=== PATIENT | male | born 1985 | race Caucasian/White ===

== ENCOUNTER 2022-01-09 09:15 | Emergency (ER) | payer OTHER, SELFPAY ==
[2022-01-09 09:21] VITALS: BP 149/102; PULSE 68; RESP 16; TEMP 36.6; O2SAT 99
--- NOTE | 2022-01-09 10:02 | ED.DENTAL ---
HPI - Dental/Oral General Chief complaint: Dental/Oral Stated complaint: tooth pain Related Data Home Medications Medication Instructions Recorded Confirmed No Home Medications 01/09/22 01/09/22 Allergies Allergy/AdvReac Type Severity Reaction Status Date / Time No Known Allergies Allergy Verified 01/09/22 09:29 Course Vital Signs Vital signs: Vital Signs Temperature 36.6 C 01/09/22 09:21 Pulse Rate 68 01/09/22 09:21 Respiratory Rate 16 01/09/22 09:21 Blood Pressure 149/102 H 01/09/22 09:21 Pulse Oximetry 99 01/09/22 09:21 Oxygen Delivery Room Air 01/09/22 09:21 Temperature 36.6 C 01/09/22 09:21 Pulse Rate 68 01/09/22 09:21 Respiratory Rate 16 01/09/22 09:21 Blood Pressure 149/102 H 01/09/22 09:21 Pulse Oximetry 99 01/09/22 09:21 Oxygen Delivery Room Air 01/09/22 09:21 Discharge Plan Discharge Prescriptions: No Action No Home Medications Follow-up/Referrals: PHYSICIAN,INFORMATION TECHNOLOGY INSTRUCTOR [Primary Care Provider] - Stand Alone Forms: Work/School Release IP
== END 2022-01-09 10:00 | disposition left against medical advice (07) ==
LOC: EXPBETH 09:19
PROVIDERS: Emergency Provider Registered Nurse
DX: Z53.21 Procedure and treatment not carried out due to patient leaving prior to being seen by health care provider (principal)
CPT/HCPCS: 99199

== ENCOUNTER → 2024-04-30 13:33 | Emergency (ER) | payer BC, SELFPAY ==
--- NOTE | ~2024-04-30 | CT_ITS ---
CT abdomen pelvis w con Ordering provider: Tracey Rosen History: 38 years Male with . rectal abscess . Comparison: None. Technique: CT abdomen and pelvis with IV and without oral contrast. Automated exposure control and it erative reconstruction technique were employed. The dose-length product was 974.84 mGy-cm. 100 mL Omn ipaque 350 was given IV. Findings: VISUALIZED LOWER CHEST: Normal. UPPER ABDOMINAL ORGANS: Liver: Normal. Gallbladder: Contracted. Spleen: Normal. Stomach/duodenum: Normal. Pancreas: Normal. Adrenals: Normal. Kidneys: Tiny cyst in the left kidney lower pole. PELVIC ORGANS: The bladder is normal. Prostatic calcification. BOWEL AND MESENTERY: Colon: No evidence of diverticulitis. Small hypodensity seen in the right rectal wall which may be sm all abscess. This area measures 1.8 x 0.3 centimeter. Soft tissue density seen in the left buttock me dially with no definite fluid collection. Normal appendix. Small Bowel: Normal. No obstruction. Peritoneum/mesentery: No free air or free fluid. No mesenteric lymphadenopathy. RETROPERITONEUM: Mild atheromatous disease of the abdominal aorta. No retroperitoneal lymphadenopat hy. MUSCULOSKELETAL: Superficial soft tissues: The superficial soft tissues are normal. Bones: Normal 1spine. IMPRESSION: 1. Possible hypodensity in the right wall of the rectum. Clinical correlation advised. 2. Soft tissue density in the medial aspect of the left buttock which may be inflammatory. Clinical correlation advised. Reviewed, dictated and finalized at location A. COM ENGINEER IMPRESSION: 1. Possible hypodensity in the right wall of the rectum. Clinical correlation advised. 2. Soft tissue density in the medial aspect of the left buttock which may be i nflammatory. Clinical correlation advised.
[2024-04-30 13:46] VITALS: BP 162/80; PULSE 82; RESP 18; TEMP 36.6; O2SAT 100
[2024-04-30 14:46] LABS: Basophils Absolute Auto 0.1 K/mm3 (0.0-0.1); Basophils Percent Auto 0.5 % (0.2-1.2); Eosinophils Absolute Auto 0.1 K/mm3 (0-0.3); Eosinophils Percent Auto 1.1 % (0-4.4); Hematocrit 46.2 % (42.0-52.0); Hemoglobin 16.3 g/dL (14.0-18.0); Immature Granulocyte Absolute 0.03 K/mm3 (0.00-0.031); Immature Granulocyte Percent A 0.3 % (0-0.5); Lymphocytes Absolute Auto 3.14 K/mm3 (0.9-3.2); Lymphocytes Percent Auto 32.5 % (18.3-44.2); Mean Corpuscular HGB Conc 35.3 g/dl (32-36); Mean Corpuscular Hemoglobin 32.4 pg (26-34); Mean Corpuscular Volume 91.8 fl (80-100); Mean Platelet Volume 10.2 fl (7.4-10.4); Monocytes Absolute Auto 0.6 K/mm3 (0.1-0.6); Neutrophils Absolute Auto 5.8 K/mm3 (1.3-6.7); Neutrophils Percent Auto 59.6 % (45.5-73.1); Platelet Count Result 303 k/mm3 (150-375); Red Blood Count 5.03 M/mm3 (4.6-6.20); Red Cell Distribution Width 12.4 % (11.5-14.5); White Blood Count 9.7 K/mm3 (4.5-10.0)
--- NOTE | 2024-04-30 14:50 | ED.SKABFB ---
HPI - Skin/Abscess/Foreign Bdy General Chief complaint: Skin/Abscess/Foreign Body <Tracey Rosen APRN - Last Filed: 04/30/24 14:55> Stated complaint: cyst on my butt <Tracey Rosen APRN - Last Filed: 04/30/24 14:55> Time Seen by Provider: 04/30/24 14:35 <Tracey Rosen APRN - Last Filed: 04/30/24 14:55> Focused HPI: Patient is a 38-year-old male who presents to the ER with an abscess on my butt. He reports he 1st noticed it approximately 1 month ago. Patient and his fiancee attempted to pop the cyst approximately 2 weeks ago but he reports on Tuesday it came back. He reports it has been draining without manipulation since Tuesday evening. Patient reports the site is painful. He endorses the cyst is between his rectum and scrotum and is approximately the size of a grape. Patient denies any recent fevers, urinary symptoms, abdominal pain. He denies any other medical history relevant to this ER visit. GENERAL: Well-appearing, well-nourished, and in no acute distress. HEAD: Normocephalic, atraumatic. CHEST: Clear to auscultation. ?No respiratory distress. HEART: Regular rate and rhythm.? NEURO: ?Alert and oriented x3. Patient screened in triage and initial orders placed.? ?Additional care and disposition to be based upon?diagnostic testing and treatment. <Tracey Rosen APRN - Last Filed: 04/30/24 14:55> History of Present Illness HPI narrative: Agree with the HPI as above <Alan Sotelo MD - Last Filed: 04/30/24 20:52> Related Data Allergies/Adverse reactions: Allergies Allergy/AdvReac Type Severity Reaction Status Date / Time No Known Allergies Allergy Verified 01/09/22 09:29 <Tracey Rosen APRN - Last Filed: 04/30/24 14:55> Review of Systems Review of Systems: Agree with the HPI above <Alan Sotelo MD - Last Filed: 04/30/24 20:52> Exam Narrative: GENERAL: [Well-appearing, well-nourished, and in no acute distress.] HEAD: [Normocephalic, atraumatic.] EYES: [PERRLA and EOMI.] ENT: Nares clear, no rhinorrhea or epistaxis. Mucous membranes moist. NECK: Supple. CHEST: [Clear to auscultation. No respiratory distress.] HEART: [Regular rate and rhythm]. No murmur heard. [Normal peripheral pulses.] ABDOMEN: [Soft, nondistended], [nontender], [No rigidity or guarding] GENITOURINARY: A knee medial intergluteal fold there is a small area of 0.5 cm x 0.3 cm previous carbuncle/abscess formation. Area is now popped, there is some slight induration with tenderness to palpation and weepage of initially serosanguineous but some clearing fluid. No persistent drainage, no bleeding. No fluctuance noted. No drainable abscess pocket on my examination. EXTREMITIES: Normal range of motion. [No edema.] SKIN: Warm, dry, no rash. NEURO: [No focal deficits]. Alert and oriented [x3.] PSYCH: [Normal mood and affect.] <Alan Sotelo MD - Last Filed: 04/30/24 20:52> Course Vital Signs Vital signs: Vital Signs Temperature 36.6 C 04/30/24 13:46 Pulse Rate 82 04/30/24 13:46 Respiratory Rate 18 04/30/24 13:46 Blood Pressure 162/80 H 04/30/24 13:46 Pulse Oximetry 100 04/30/24 13:46 Oxygen Delivery Room Air 04/30/24 13:46 Temperature 37.1 C 04/30/24 15:12 Pulse Rate 79 04/30/24 15:12 Respiratory Rate 18 04/30/24 15:12 Blood Pressure 118/79 04/30/24 15:12 Pulse Oximetry 97 04/30/24 15:12 Oxygen Delivery Room Air 04/30/24 13:46 <rTacey Rosen APRN - Last Filed: 04/30/24 14:55> Vital Signs Temperature 36.6 C 04/30/24 13:46 Pulse Rate 82 04/30/24 13:46 Respiratory Rate 18 04/30/24 13:46 Blood Pressure 162/80 H 04/30/24 13:46 Pulse Oximetry 100 04/30/24 13:46 Oxygen Delivery Room Air 04/30/24 13:46 Temperature 37.1 C 04/30/24 15:12 Pulse Rate 79 04/30/24 15:12 Respiratory Rate 18 04/30/24 15:12 Blood Pressure 118/79 04/30/24 15:12 Pulse Oximetry 97 04/30/24 15:12 Oxygen Delivery Room Air 04/30/24 13:46 <Alan Sotelo MD - Last Filed: 04/30/24 20:52> MDM - Skin/Abscess/Foreign Bdy MDM Narrative Medical decision making narrative: 38-year-old male presenting to the emergency department for evaluation of a perirectal abscess. He states for last month he has been having painful cyst in this area once in his intergluteal fold and 1 year as rectum. Notes that the 1 year his intergluteal fold did pop several days ago and has been draining some fluid mixed with white colored material. No fevers, no abdominal pain, nausea vomiting. He states he has not been seen by anybody for this previously. Was put on antibiotics that his primary care provider called for him for concerns of an abscess. Clinically he appears to have a carbuncle or an area of an abscess in his intergluteal fold that already has popped and is no longer actively draining. Does not clinically look significantly infected, no identifiable drainable abscess pocket, no fluctuance or irritation. Is mildly tender to palpation. Workup was ordered including a CT scan with IV contrast to assess for any other abscess formations or perirectal abscesses. Workup including CBC and CMP obtained. Patient was provided Toradol for analgesia. Workup shows no leukocytosis or anemia. Normal electrolytes. Normal renal and hepatic function panel. Negative lactic acid. Urinalysis without any signs of infection. CT scan was independently reviewed and also interpreted by radiology. There is a hypodensity in the right wall of the rectum that is very small and measures 1.8 x 0.3 cm which could be a perirectal abscess although not highly suspicious for this. The soft tissue densities seen his medial left butt cheek with inflammatory evidence but no abscess drainage or any fluid pocket. I relayed the CT findings to the patient and our plan of care going forward will be to treat him with antibiotics both topical and oral and have him follow-up with General surgery on outpatient basis for further evaluation and recommendations. Patient and family felt comfortable this plan of care and was stable for discharge home at this time. <Alan Sotelo MD - Last Filed: 04/30/24 20:52> Medical Records Attestation: I reviewed the patient's medical records. <Alan Sotelo MD - Last Filed: 04/30/24 20:52> Lab Data Attestation: I reviewed the patient's lab results. <Alan Sotelo MD - Last Filed: 04/30/24 20:52> Result diagrams: 04/30/24 14:36 04/30/24 14:36 <Tracey Rosen APRN - Last Filed: 04/30/24 14:55> Labs: Lab Results 04/30/24 04/30/24 Range/Units 14:36 15:38 WBC 9.7 (4.5-10.0) K/mm3 RBC 5.03 (4.6-6.20) M/mm3 Hgb 16.3 (14.0-18.0) g/dL Hct 46.2 (42.0-52.0) % MCV 91.8 (80-100) fl MCH 32.4 (26-34) pg MCHC 35.3 (32-36) g/dl RDW 12.4 (11.5-14.5) % Plt Count 303 (150-375) k/mm3 MPV 10.2 (7.4-10.4) fl Immature Gran % (Auto) 0.3 (0-0.5) % Neut % (Auto) 59.6 (45.5-73.1) % Lymph % (Auto) 32.5 (18.3-44.2) % [place] % (Auto) 6.0 (2.6-8.5) % Eos % (Auto) 1.1 (0-4.4) % Baso % (Auto) 0.5 (0.2-1.2) % Lymph # (Auto) 3.14 (0.9-3.2) K/mm3 [place] # (Auto) 0.6 (0.1-0.6) K/mm3 Eos # (Auto) 0.1 (0-0.3) K/mm3 Baso # (Auto) 0.1 (0.0-0.1) K/mm3 Abs Immat Gran (auto) 0.03 (0.00-0.031) K/mm3 Absolute Neuts (auto) 5.8 (1.3-6.7) K/mm3 Absolute Nucleated RBC 0.000 (0.0-0.012) K/mm3 Nucleated RBC % 0.0 (0.0-0.2) % Sodium 139 (137-145) mmol/L Potassium 3.9 (3.4-5.0) mmol/L Chloride 108 H (98-107) mmol/L Carbon Dioxide 25 (22-30) mmol/L Anion Gap 6 (4-12) mmol/L BUN 17 (9-20) mg/dL Creatinine 1.00 (0.7-1.3) mg/dL Estim Creat Clear Calc 107 ml/min Estimated GFR > 60 (59 - ) Glucose 95 (65-110) mg/dL Lactic Acid 1.9 (0.7-2.0) mmol/L Calcium 9.4 (8.4-10.2) mg/dL Total Bilirubin 0.5 (0.2-1.3) mg/dL AST 29 (17-59) U/L ALT 50 (6-50) U/L Alkaline Phosphatase 93 (38-126) U/L Total Protein 8.0 (6.3-8.2) g/dL Albumin 4.4 (3.5-5.1) g/dL Urine Color Yellow (Yellow) Urine Appearance Clear (Clear) Urine pH 5.5 (5.0-9.0) Ur Specific [place] > 1.045 H (1.001-1.035) Urine Protein Negative (Negative) mg/dL Urine Glucose (UA) Negative (Negative) mg/dL Urine Ketones Negative (Negative) mg/dL Ur Blood (Man) Negative (Negative) Urine Nitrate Negative (Negative) Urine Bilirubin Negative (Negative) Urine Urobilinogen 0.2 (<2.0) mg/dL Leukocyte Esterase Rfl Negative (Negative) [facility] <Tracey Rosen, CAN DRYER - Last Filed: 04/30/24 14:55> Lab Results 04/30/24 04/30/24 Range/Units 14:36 15:38 WBC 9.7 (4.5-10.0) K/mm3 RBC 5.03 (4.6-6.20) M/mm3 Hgb 16.3 (14.0-18.0) g/dL Hct 46.2 (42.0-52.0) % MCV 91.8 (80-100) fl MCH 32.4 (26-34) pg MCHC 35.3 (32-36) g/dl RDW 12.4 (11.5-14.5) % Plt Count 303 (150-375) k/mm3 MPV 10.2 (7.4-10.4) fl Immature Gran % (Auto) 0.3 (0-0.5) % Neut % (Auto) 59.6 (45.5-73.1) % Lymph % (Auto) 32.5 (18.3-44.2) % [place] % (Auto) 6.0 (2.6-8.5) % Eos % (Auto) 1.1 (0-4.4) % Baso % (Auto) 0.5 (0.2-1.2) % Lymph # (Auto) 3.14 (0.9-3.2) K/mm3 [place] # (Auto) 0.6 (0.1-0.6) K/mm3 Eos # (Auto) 0.1 (0-0.3) K/mm3 Baso # (Auto) 0.1 (0.0-0.1) K/mm3 Abs Immat Gran (auto) 0.03 (0.00-0.031) K/mm3 Absolute Neuts (auto) 5.8 (1.3-6.7) K/mm3 Absolute Nucleated RBC 0.000 (0.0-0.012) K/mm3 Nucleated RBC % 0.0 (0.0-0.2) % Sodium 139 (137-145) mmol/L Potassium 3.9 (3.4-5.0) mmol/L Chloride 108 H (98-107) mmol/L Carbon Dioxide 25 (22-30) mmol/L Anion Gap 6 (4-12) mmol/L BUN 17 (9-20) mg/dL Creatinine 1.00 (0.7-1.3) mg/dL Estim Creat Clear Calc 107 ml/min Estimated GFR > 60 (59 - ) Glucose 95 (65-110) mg/dL Lactic Acid 1.9 (0.7-2.0) mmol/L Calcium 9.4 (8.4-10.2) mg/dL Total Bilirubin 0.5 (0.2-1.3) mg/dL AST 29 (17-59) U/L ALT 50 (6-50) U/L Alkaline Phosphatase 93 (38-126) U/L Total Protein 8.0 (6.3-8.2) g/dL Albumin 4.4 (3.5-5.1) g/dL Urine Color Yellow (Yellow) Urine Appearance Clear (Clear) Urine pH 5.5 (5.0-9.0) Ur Specific [place] > 1.045 H (1.001-1.035) Urine Protein Negative (Negative) mg/dL Urine Glucose (UA) Negative (Negative) mg/dL Urine Ketones Negative (Negative) mg/dL Ur Blood (Man) Negative (Negative) Urine Nitrate Negative (Negative) Urine Bilirubin Negative (Negative) Urine Urobilinogen 0.2 (<2.0) mg/dL Leukocyte Esterase Rfl Negative (Negative) [facility] <Alan Sotelo MD - Last Filed: 04/30/24 20:52> Imaging Data Attestation: I personally reviewed and interpreted this imaging study as follows: <Alan Sotelo MD - Last Filed: 04/30/24 20:52> My impression: Impressions Abdomen/Pelvis CT 04/30/24 14:53 IMPRESSION: 1. Possible hypodensity in the right wall of the rectum. Clinical correlation advised. 2. Soft tissue density in the medial aspect of the left buttock which may be inflammatory. Clinical correlation advised. <Alan Sotelo MD - Last Filed: 04/30/24 20:52> Discharge Plan Discharge Clinical Impression: Abscess of skin or subcutaneous tissue, Carbuncle and furuncle of buttock, Abscess, perirectal <Tracey Rosen APRN - Last Filed: 04/30/24 14:55> Patient Disposition: Home, Self-Care <Tracey Rosen APRN - Last Filed: 04/30/24 14:55> Condition: Stable <Tracey Rosen APRN - Last Filed: 04/30/24 14:55> Instructions: Antibiotic Form, Abscess (ED), Abscess Incision and Drainage (DC) <Tracey Rosen APRN - Last Filed: 04/30/24 14:55> Additional Instructions: We will treat your carbuncle and cutaneous abscess that is already popped with topical antibiotics and also oral antibiotics. You have a very small perirectal area of inflammation which could be a small abscess. Will refer you to general surgery to evaluate you on an outpatient basis. Order Sitz baths and use frequently. Continue taking the antibiotics as prescribed and follow-up with them on a short-term basis. Return with any new or worsening concerns at any time. <Tracey Rosen APRN - Last Filed: 04/30/24 14:55> Patient Language: American <Tracey Rosen APRN - Last Filed: 04/30/24 14:55> Prescriptions: New amoxicillin-pot clavulanate 875-125 mg tablet 1 tablet PO Q12H 7 Days Qty: 14 0RF clindamycin phosphate 1 % gel 1 applic topical BID Qty: 30 0RF <Tracey Rosen APRN - Last Filed: 04/30/24 14:55> Follow-up/Referrals: Marzena Mendoza MD [Physician] - 1 Week (Perirectal abscess) PHYSICIAN NOT ON STAFF,NONSTAFF [Non-Staff] - <Tracey Rosen APRN - Last Filed: 04/30/24 14:55> Time of Disposition: 16:59 <Tracey Rosen APRN - Last Filed: 04/30/24 14:55> 16:59 <Alan Sotelo MD - Last Filed: 04/30/24 20:52>
[2024-04-30 15:01] LABS: Lactic Acid Reflex 1.9 mmol/L (0.7-2.0)
[2024-04-30 15:02] LABS: Alanine Aminotransferase 50 U/L (6-50); Albumin Level 4.4 g/dL (3.5-5.1); Alkaline Phosphatase 93 U/L (38-126); Anion Gap 6 mmol/L (4-12); Aspartate Amino Transferase 29 U/L (17-59); Bilirubin,Total 0.5 mg/dL (0.2-1.3); Blood Urea Nitrogen 17 mg/dL (9-20); Calcium 9.4 mg/dL (8.4-10.2); Carbon Dioxide 25 mmol/L (22-30); Chloride 108 mmol/L (98-107); Estimated CRCL calculation 107 ml/min; Estimated Glomerular Filt Rate > 60; Glucose 95 mg/dL (65-110); Potassium 3.9 mmol/L (3.4-5.0); Sodium 139 mmol/L (137-145)
[2024-04-30 15:12] VITALS: BP 118/79; PULSE 79; RESP 18; TEMP 37.1; O2SAT 97
[2024-04-30] MEDS: KETOROLAC (*BKC) 60 MG/2 ML VIAL IM (15:32)
[2024-04-30 15:56] LABS: Add Urine Microscopic? NO; Appearance Urine Clear (Clear); Bilirubin Urine Negative (Negative); Blood Urine Negative (Negative); Color Urine Yellow (Yellow); Glucose Urine UA Negative (Negative); Ketones Urine Negative (Negative); Leukocyte Esterase Ur Negative LEU/UL (Negative); Nitrate Urine Negative (Negative); Protein Urine Negative (Negative); Specific Grav Ur > 1.045 (1.001-1.035); Urobilinogen Urine 0.2 mg/dL (<2.0); pH Urine 5.5 (5.0-9.0)
[2024-05-04 10:29] LABS: Estimated CRCL calculation 99 ml/min; Estimated Glomerular Filt Rate > 60
== END | disposition home or self-care (01) ==
LOC: ANHED 17:08
PROVIDERS: Registered Nurse; Emergency Provider Student in an Organized Health Care Education/Training Program
DX: L02.31 Cutaneous abscess of buttock (principal); K61.1 Rectal abscess; L02.33 Carbuncle of buttock; L02.32 Furuncle of buttock
CPT/HCPCS: 36415; 74177; 80053; 81003; 82565; 83605; 85025; 96372; 99284; J1885; Q9967

== ENCOUNTER 2024-05-10 02:35 | Day surgery (SDC) | payer BC, SELFPAY ==
[2024-05-08 15:26] VITALS: BMI 34.0
--- NOTE | 2024-05-08 15:53 | SUR.PREOP ---
Report to the Outpatient Waiting Room, entrance under the green pavilion located off [facility], at time _0830_ on date _05/10/24_. Planned Procedure Time: 1030.? Time changes happen often and if your time is changed the preop area will call you the afternoon before. - You and your visitor will be asked to self-screen and do not enter if you have any COVID symptoms. Please call surgeon if you need to reschedule. - A mask is optional within the hospital at this time. Patients may have clear liquids (water, carbonated beverages, clear teas, apple juice) until 3 hours prior to surgery with a maximum of 20 ounces. - No food from midnight until time of surgery and no smoking. This includes no chewing gum, candy or mints. - Infants may have breast milk until 4 hours before surgery, formula 6 hours prior to surgery. - Children will be allowed to drink immediately following surgery.? If applicable, please bring a bottle or sippy cup to assist with drinking. Juice, water, soda, and popsicles are readily available.? For infants on formula, please bring formula the day of surgery.? Pacifiers are allowed. Take only the following medications with a SIP of water on the morning of surgery: ___n/a__ DO NOT STOP ANY OF YOUR OTHER PRESCRIPTION MEDICATIONS PRIOR TO SURGERY EXCEPT THE FOLLOWING Medications to discontinue per physician ___n/a Date to take last dose Please no make-up, nail yi, hairspray, perfume, deodorant, or body powder the day of surgery.? No jewelry (including any body piercings) or valuables the day of surgery, leave them at home.? Please take a shower or bath the night before, or the morning of, surgery with an antibacterial soap.? Wear comfortable, loose fitting clothing.? Children are encouraged to wear pajamas. - Jewelry must be removed prior to entering the operating room.? Rings and piercings that are not removed may be cut off. - The hospital will not accept responsibility for valuables.? - Please leave all valuables, including medications, at home the day of surgery. If you are going home after surgery, a licensed trolley coach driver must drive you home.? - NO public transportation without another adult if you receive anesthesia. - We recommend that an adult stay with you for 24 hours following discharge. - We also recommend that you do not drive, make important decision, drink alcoholic beverages, or take any drugs that were not prescribed by your health care provider for at least 24 hours after your discharge time. For Pediatric surgeries, we recommend two adults accompany the child home. Follow any additional instructions given to you from your surgeon. Telephone instructions given to __patient___and asked if any additional questions and then verbalized understanding. Patient advised to call surgeon office or pre surgery nurse liaison [phone] if any additional questions.
[2024-05-10] VITALS (7 sets, daily range): BP systolic 103–129; BP diastolic 58–88; PULSE 69–89; RESP 14–18; TEMP 36.7–36.8; O2SAT 97–100; BMI 34.0
--- NOTE | 2024-05-10 09:09 | WPDHPUPDATE1 ---
History and Physical Update Update Date/Time: 05/10/24 09:09 History and Physical has been reviewed, including an updated exam of the patient. There are NO changes in the patient's condition. Risks, benefits, and alternatives have been discussed and questions answered. Patient agrees to proceed with procedure.
[2024-05-10] MEDS: LACTATED RINGERS 1,000 ML 30 ML IV CONT (09:10)
--- NOTE | 2024-05-10 10:06 | P.PNAN_ITS ---
Anes - Initial Pre Proc Eval Procedure: Operation Date: 05/10/24 10:30 Proposed Procedures p Incision and Drainage Complex Perineal Abscess Times Two - Marzena Mendoza MD Date/Time: 05/10/24 10:06 Surgeon: Marzena Mendoza MD Pre Op Diagnosis: Perineal Abscess x2 Patient Data Age: 38 Gender: M Height: 1.75 m Weight: 104.4 kg Last Vital Signs Temp 98.1 F 05/10/24 09:16 Pulse 72 05/10/24 09:16 Resp 16 05/10/24 09:16 BP 111/77 05/10/24 09:16 Pulse Ox 100 05/10/24 09:16 O2 Del Method Room Air 05/10/24 09:16 Allergies Allergy/AdvReac Type Severity Reaction Status Date / Time amoxicillin Allergy Mild rash Verified 05/10/24 09:15 Home Medications ?Medication ?Instructions ?Recorded ?Confirmed ?Type clindamycin phosphate 1 % topical 1 applic topical BID #30 grams 04/30/24 05/08/24 Rx gel bupropion HCl 150 mg 24 hr tablet, 150 mg PO QAM 05/08/24 05/08/24 History extended release Patient hx anesthesia problems: none Family hx anesthesia problems: none Results Review: All pre-operative results and documents have been reviewed as part of the pre- operative evaluation. [facility] Surgical History Surgical History H/O right knee surgery 2014 Social History Social History Smoking status: Never smoker Tobacco type: cigarettes Smokeless tobacco user: chewing tobacco Alcohol intake: current Substance use: never Current Housing: Decline to Answer Concerned About Future Housing: Decline to Answer Difficulty Paying Gas/Electric Bills: Decline to Answer Difficulty Paying for Meds: Decline to Answer Currently Unemployed: Decline to Answer Education: Decline to Answer Difficulty w/ Childcare or Family Care: Decline to Answer Anes - Eval Final PreProcedure Day of Procedure 05/10/24 10:06 Patient weight: obese Heart: regular rate and rhythm Lungs: clear to auscultation Airway: Mallampati scale class II Neurological: alert and oriented Last oral intake: >/= 8 hours ASA classification: II Emergent: no Anesthetic plan: proceed Anesthesia type and monitoring: general LMA and standard monitoring Results Review: All pre-operative results and documents have been reviewed as part of the pre- operative evaluation. BMI 34, smoker, 15 pack years, pt smoked at 8 am today. Informed Consent: The patient's anesthetic plan and its attendant risks and benefits were discussed with the patient/family/POA. Questions were solicited and answers provided to the satisfaction of the patient/family/POA.
[2024-05-10] MEDS: ceFAZolin 2 GM/D5W 50 ML 2 GM/50 ML BAG IVPB (10:22)
[2024-05-10] MEDS: BUPIVACAINE/EPINEPHRINE 0.5% 50 ML VIAL 30 ML INFILTRATE (10:27)
--- NOTE | 2024-05-10 11:02 | W.PM.PROC2 ---
Procedure Note - Detailed Date of Procedure 05/10/24 Pre-op Diagnosis Perineal Abscess x2 Post-op Diagnosis Same Procedure Performed Complex incision and drainage perineal abscess x2 Surgeon Marzena Mendoza MD Anesthesia General and Local Indications 38-year-old male presenting to the office with non healing perineal abscess x2 Findings 3 x 2 cm abscess left perineum, 2 x 2 cm abscess mid perineum Description of Procedure The patient was taken to the operating room and placed in the modified lithotomy position. After adequate induction of general anesthesia, the patient was prepped and draped in normal sterile fashion. A time-out was then done to verify the patient's identity, as well as the procedure being performed. I began by localizing area in and around these 2 abscesses in the left perineum and mid perineum. I then made an incision over the most fluctuant area of these abscesses. Both abscesses had some moderate purulent material that was subsequently drained. I then used the hemostat to bluntly dissect around these cavities. The area in the left perineum tract posteriorly approximately 4 cm. The measurements of this cavity were 3 x 2 x 4 cm. The mid peritoneal cavity tracked back approximately 3 cm. The measurements of this cavity were 2 x 2 x 3 cm. Once these areas were completely opened and drained, copiously irrigated both cavities. I then packed the areas with quarter-inch iodoform to keep the area open and draining. Sterile dressing was then placed. The patient tolerated the procedure well and was extubated postoperatively. He will be sent to the recovery room in stable condition. Estimated Blood Loss 5 Packing Yes Pathology None sent Complications No immediate complications Condition Stable Disposition PACU [facility] Billing Surgery - Charge Forward: Surgery Billing
== END 2024-05-10 12:06 | disposition home or self-care (01) ==
PROVIDERS: Visit Provider Surgery
PROC: (CPT 46040; principal; 2024-05-10 10:30)
DX: L02.215 Cutaneous abscess of perineum (principal); F17.220 Nicotine dependence, chewing tobacco, uncomplicated; E66.9 Obesity, unspecified; Z68.34 Body mass index [BMI] 34.0-34.9, adult; Z98.890 Other specified postprocedural states
CPT/HCPCS: 10061; J0690; J2003; J2250; J2405; J2704; J3010; J7120